=== PATIENT | male | born 1970 | race Caucasian/White ===

== ENCOUNTER 2018-01-18 23:41 | Observation (INO) | payer MEDICAID, OTHER ==
[~2018-01-18] VITALS: Ht 177.8 cm; Wt 81.8 kg
[~2018-01-18 23:41] MED LIST: CIPR-259 PO
[2018-01-19] VITALS (12 sets, daily range): BP systolic 98–159; BP diastolic 72–97
[2018-01-19] MEDS ORDERED: ondansetron/PF 4mg/2ml inj IV ONE ×2 (01:10→02:10)
[2018-01-19] MEDS ORDERED: morphine 4 MG/ML inj SYRINge IV ONE (01:10)
[2018-01-19] MEDS ORDERED: normal saline 1000ml 1,000 ML IV ONE (01:10)
[2018-01-19 01:35] LABS: CLARITY,URINE CLEAR (Clear); COLOR,URINE YELLOW (Yellow); GLUCOSE, URINE NEGATIVE (Neg); KETONES,URINE NEGATIVE (Neg); LEUKOCYTE ESTERASE ,URINE NEGATIVE (Neg); NITRITES, URINE NEGATIVE (Neg); OCCULT BLOOD,URINE NEGATIVE (Neg); PH,URINE 7.5 (4.8-8.0); PROTEIN,URINE NEGATIVE (Neg); UROBILINOGEN,URINE 0.2 E.U/dL (0.2-1.0)
[2018-01-19 01:35] LABS: BASOPHILS # (AUTO) 0.1 X10'3 (0-0.2); BASOPHILS % (AUTO) 0.5 % (0-1); EOSINOPHILS # (AUTO) 0.2 X10'3 (0-0.9); EOSINOPHILS % (AUTO) 1.7 % (0-6); HEMOGLOBIN 16.9 g/dl (14.0-17.9); LYMPHOCYTES # (AUTO) 2.1 X10'3 (1.1-4.8); LYMPHOCYTES % (AUTO) 16.2 % (21-51); MEAN CORPUSCULAR HEMOGLOBIN 29.3 PG (27.0-31.0); MEAN CORPUSCULAR HGB CONC 33.1 % (33.0-36.5); MEAN CORPUSCULAR VOLUME 88.4 FL (78-98); MEAN PLATELET VOLUME 8.5 FL (7.4-10.4); MONOCYTES # (AUTO) 0.5 X10'3 (0-0.9); MONOCYTES % (AUTO) 3.9 % (2-12); NEUTROPHILS # (AUTO) 10.1 X10'3 (1.8-7.7); NEUTROPHILS % (AUTO) 77.7 % (42-75); PLATELET COUNT 285 X10'3 (140-440); RED BLOOD COUNT 5.77 X10'6 (4.70-6.10); RED CELL DISTRIBUTION WIDTH 12.8 % (11.5-14.5); WHITE BLOOD COUNT 12.9 X10'3 (4.5-11.0)
[2018-01-19 01:36] LABS: UA COLLECTION TYPE VOIDED
[2018-01-19] MEDS ORDERED: normal saline 1000ML IV soln IVB ONE (02:10)
[2018-01-19] MEDS ORDERED: MORPHINE 2MG in 2ml NS syringe IV PRN (02:10)
[2018-01-19] MEDS ORDERED: fentaNYL/PF 50MCG/1 ML 2ML syringe IV ONE (02:55)
[2018-01-19 03:32] LABS: ALANINE AMINOTRANSFERASE 43 U/L (12-78); ALBUMIN 3.4 G/DL (3.4-5.0); ALBUMIN/GLOBULIN RATIO 1.1 (1.1-1.5); ALKALINE PHOSPHATASE 79 IU/L (46-116); ANION GAP 6 (8-16); ASPARTATE AMINO TRANSFERASE 28 U/L (10-37); BILIRUBIN,TOTAL 0.3 MG/DL (0.1-1.0); BLOOD UREA NITROGEN 17 MG/DL (7-18); BUN/CREATININE RATIO 19.1 (5.4-32.0); CALCIUM 8.4 MG/DL (8.5-10.1); CHLORIDE 107 MMOL/L (99-107); CREATININE 0.89 MG/DL (0.60-1.10); GLUCOSE 137 MG/DL (70-104); LIPASE 105 U/L (73-393); SODIUM 143 MMOL/L (135-145); TOTAL CARBON DIOXIDE 29.9 MMOL/L (24-32); TOTAL PROTEIN 6.6 G/DL (6.4-8.2); eGFR > 90 ML/MIN
[2018-01-19] MEDS ORDERED: potassium Cl 20 mEq SR tablet PO PRN ×2 (05:25)
[2018-01-19] MEDS ORDERED: ondansetron/PF 4mg/2ml inj IV PRN ×3 (05:25→19:40)
[2018-01-19] MEDS ORDERED: acetaminophen 325mg tablet PO PRN (05:25)
[2018-01-19] MEDS ORDERED: HYDROmorphone inj. 0.5 MG/0.5 ML DISP.SYRIN IV PRN (05:25)
[2018-01-19] MEDS ORDERED: potassium Cl 40MEQ/NS 500ml 500 ML IV PRN ×2 (05:25)
[2018-01-19 06:50] LABS: INR 0.9 INR; PROTHROMBIN TIME 9.5 SECONDS (9.0-12.0)
[2018-01-19] MEDS: K and/or MAG REPLACEMENT MC SCH (08:00)
[2018-01-19] MEDS ORDERED: CefTRIAXone/D5W-Rocephin 1gm 50 ML IV SCH (08:00)
[2018-01-19] MEDS: normal saline 1000ml 1,000 ML IV SCH ×3 (08:26→21:48)
[2018-01-19] MEDS ORDERED: NO HOME MEDS (10:05)
[2018-01-19] MEDS ORDERED: BUPIVAcaine/PF 2.5 mg/ml (0.25%) 30ml vial ONE (18:08)
[2018-01-19] MEDS ORDERED: glycopyrrolate 0.2mg/ml inj ONE (18:22)
[2018-01-19] MEDS ORDERED: desflurane 240ml liquid inh. IH ONE (18:22)
[2018-01-19] MEDS ORDERED: neostigmine methylsulfate 1 MG/ML 10ml vial ONE (18:22)
[2018-01-19] MEDS ORDERED: proCHLORperazine 10 MG/2 ml inj IV PRN (18:35)
[2018-01-19] MEDS ORDERED: acetaminophen 1,000mg/100ml IV 100 ML IV PRN (18:35)
[2018-01-19] MEDS ORDERED: meperidine/PF 50mg/ml syringe IV PRN ×2 (18:35)
[2018-01-19] MEDS ORDERED: morphine 4 MG/ML inj SYRINge IV PRN ×2 (18:35)
[2018-01-19] MEDS ORDERED: ketorolac trometh. 30mg/ml inj. IV ONE (18:35)
[2018-01-19] MEDS ORDERED: ringers solution, lacted 1,000 ML IV SCH (18:35)
[2018-01-19] MEDS ORDERED: fentaNYL/PF 50MCG/1 ML 2ML syringe ONE (18:37)
[2018-01-19] MEDS ORDERED: midazolam 2 mg/2 ml injection ONE (18:40)
[2018-01-19] MEDS ORDERED: LIDOcaine 2% (20mg/ml) 5ml vial ONE (18:49)
[2018-01-19] MEDS ORDERED: propofol inj 20 ML IV ONE (18:49)
[2018-01-19] MEDS ORDERED: rocuronium 10mg/ml inj IV ONE (18:49)
[2018-01-19] MEDS ORDERED: ceFOXitin 1000 MG inj ONE ×2 (19:23)
[2018-01-19] MEDS ORDERED: dexamethasone sod phosphate 4mg/ml inj. ONE (19:24)
[2018-01-19] MEDS ORDERED: ondansetron/PF 4mg/2ml inj ONE (19:24)
[2018-01-19] MEDS ORDERED: ketorolac tromethamine 15mg/ml inj. IV PRN (19:40)
[2018-01-19] MEDS ORDERED: HYDROcodone/acetaminophen 10/325mg tab PO PRN (19:40)
[2018-01-19] MEDS: meperidine/PF 50mg/ml syringe IV PRN ×2 (19:44→19:54)
[2018-01-20] VITALS: BP 114/69
[2018-01-20 00:30] VITALS: BP 123/71
[2018-01-20 01:30] VITALS: BP 133/78
[2018-01-20 04:00] VITALS: BP 113/69
[2018-01-20 05:35] LABS: BASOPHILS % (AUTO) 0 % (0-1); EOSINOPHILS # (AUTO) 0.2 X10'3 (0-0.9); EOSINOPHILS % (AUTO) 1.4 % (0-6); HEMATOCRIT 47.7 % (42.0-52.0); HEMOGLOBIN 16.4 g/dl (14.0-17.9); LYMPHOCYTES # (AUTO) 0.4 X10'3 (1.1-4.8); LYMPHOCYTES % (AUTO) 3.3 % (21-51); MEAN CORPUSCULAR HEMOGLOBIN 29.7 PG (27.0-31.0); MEAN CORPUSCULAR HGB CONC 34.3 % (33.0-36.5); MEAN CORPUSCULAR VOLUME 86.6 FL (78-98); MEAN PLATELET VOLUME 7.2 FL (7.4-10.4); MONOCYTES # (AUTO) 0.2 X10'3 (0-0.9); MONOCYTES % (AUTO) 1.5 % (2-12); NEUTROPHILS # (AUTO) 12.3 X10'3 (1.8-7.7); NEUTROPHILS % (AUTO) 93.8 % (42-75); PLATELET COUNT 308 X10'3 (140-440); RED BLOOD COUNT 5.51 X10'6 (4.70-6.10); RED CELL DISTRIBUTION WIDTH 13.6 % (11.5-14.5); WHITE BLOOD COUNT 13.1 X10'3 (4.5-11.0)
[2018-01-20 05:38] LABS: ALBUMIN 3.1 G/DL (3.4-5.0); ANION GAP 9 (8-16); BLOOD UREA NITROGEN 10 MG/DL (7-18); BUN/CREATININE RATIO 9.8 (5.4-32.0); CALCIUM 8.5 MG/DL (8.5-10.1); CHLORIDE 106 MMOL/L (99-107); CREATININE 1.02 MG/DL (0.60-1.10); GLUCOSE 147 MG/DL (70-104); POTASSIUM 4.7 MMOL/L (3.5-5.1); SODIUM 140 MMOL/L (135-145); TOTAL CARBON DIOXIDE 24.9 MMOL/L (24-32); eGFR 79 ML/MIN
[2018-01-20 07:16] VITALS: BP 102/60
[2018-01-20] MEDS: K and/or MAG REPLACEMENT MC SCH (08:00)
[2018-01-20] MEDS: normal saline 1000ml 1,000 ML IV SCH (09:05)
== END 2018-01-20 10:00 | disposition left against medical advice (07) ==
LOC: ER 23:41 → ED HOLD 01-19 05:25 → PACU 01-19 19:25 → SUR 3N 01-19 20:40
PROVIDERS: ADMIT Family Medicine; ATTEND Family Medicine
DX: K80.12 Calculus of gallbladder with acute and chronic cholecystitis without obstruction (principal); K42.9 Umbilical hernia without obstruction or gangrene; F12.90 Cannabis use, unspecified, uncomplicated; J45.909 Unspecified asthma, uncomplicated; Z87.11 Personal history of peptic ulcer disease
CPT/HCPCS: 36415; 47562; 49585; 76700; 80048; 80053; 81003; 83690; 85025; 85610; 86885; 86900; 86901; 87070; 93005; 96365; 96375; 96376; 99285; G0378; J0694; J0696; J1100; J1885; J2001; J2175; J2250; J2270; J2405; J2704; J2710; J3010; J3490; J7030; J7120; 96361; 96374; A7000

== ENCOUNTER 2018-01-31 12:08 | Emergency (ER) | payer OTHER ==
[~2018-01-31] VITALS: Ht 170.2 cm; Wt 81.8 kg
[~2018-01-31 12:08] MED LIST changes: -CIPR-259 PO; +NO HOME MEDS
[2018-01-31 12:26] VITALS: BP 127/79
== END 2018-01-31 13:47 | disposition home or self-care (01) ==
LOC: ER 12:08
DX: Z48.02 Encounter for removal of sutures (principal); Z90.49 Acquired absence of other specified parts of digestive tract; F12.10 Cannabis abuse, uncomplicated; J45.909 Unspecified asthma, uncomplicated; Z88.0 Allergy status to penicillin
CPT/HCPCS: 99281